=== PATIENT | female | born 1950 | race Caucasian/White ===

== ENCOUNTER 2018-08-03 07:03 | Day surgery (SDC) | payer BC ==
[~2018-08-03] VITALS: Ht 170.2 cm; Wt 83.5 kg
--- NOTE | 2018-08-03 08:12 | PREAC ---
Date/Time of Note Date/Time of Note DATE: 08/03/18 TIME: 08:11 Anesthesia Eval and Record Evaluation Time Pre-Procedure Interview DATE: 08/03/18 TIME: 08:11 Age 68 Sex female NPO: 8 hrs Preoperative diagnosis GERD, occult blood stool Planned procedure EGD, colonoscopy Past Medical History Past Medical History: None Surgery & Anesthesia Issues No known issue Meds Anticoagulation: No Beta Chan within 24 hr: No Reason Beta Chan not given: Pt. not on B-Chan Meds reviewed: Yes Allergies Allergies Reviewed: Yes (penicillin) Labs/Studies Labs Reviewed: Reviewed by anesthesiologist test: N/A Pre-procedure Exam Airway: Adequate mouth opening, Adequate thyromental dist Mallampati: Mallampati II Teeth: Abnormal (partials) Lung: Normal Heart: Normal ASA Physical Status ASA physical status: 1 Emergency: None Planned Anesthetic General/MAC: Mask Planned Pain Management Parenteral pain med Pre-operative Attestations Prior to commencing anesthesia and surgery, the patient was re-evaluated, there was verification of: *The patient's identity *The results of appropriate recent lab work and preoperative vital signs *The above evaluation not changing prior to induction *Anesthetic plan, risk benefits, alternative and complications discussed with patient/family; questions answered; patient/family understands, accepts and wishes to proceed. Pharmacy District Manager used SENG ROBLES MD Aug 03, 2018 08:12
[2018-08-03 08:15] VITALS: Ht 170.2 cm; Wt 83.5 kg
[2018-08-03] MEDS ORDERED: vitamins PO (08:22)
[2018-08-03 08:23] VITALS: BP 114/59; PULSE 73; RESP 20
[2018-08-03] MEDS ORDERED: LIDOCAINE 2% (SDV) 5 ML INJ ONE (08:58)
[2018-08-03] MEDS ORDERED: PROPOFOL 40 ML ONE (08:58)
[2018-08-03] MEDS ORDERED: ONDANSETRON 4 MG INJ IV PRN (09:00)
[2018-08-03] MEDS ORDERED: PROPOFOL 20 ML ONE (09:41)
--- NOTE | 2018-08-03 09:49 | PAC ---
Date/Time of Note Date/Time of Note DATE: 08/03/18 TIME: 09:48 Post-Anesthesia Notes Post-Anesthesia Note Last documented vital signs Vital Signs Date Temp Pulse Resp B/P (MAP) Pulse Ox O2 O2 Flow FiO2 Time Delivery Rate 08/03/18 97.7 73 20 114/59 97 Room Air 08:23 (77) Activity: WNL Respiratory function: WNL Cardiovascular function: WNL Mental status: Baseline Pain reasonably controlled: Yes Hydration appropriate: Yes Nausea/Vomiting absent: Yes Comments BP: 98/60 HR: 68 RR: 15 T: 98 SaO2: 99% SENG ROBLES MD Aug 03, 2018 09:49
[2018-08-03 10:13] VITALS: BP 110/60; RESP 20
== END 2018-08-03 11:53 | disposition home or self-care (01) ==
LOC: GIL 07:03
PROVIDERS: ATTEND Internal Medicine Gastroenterology
DX: K92.1 Melena (principal); K29.30 Chronic superficial gastritis without bleeding; K21.9 Gastro-esophageal reflux disease without esophagitis; K64.8 Other hemorrhoids
CPT/HCPCS: 43239; 45378; 88305; 88312; Z7610